=== PATIENT | female | born 1950 | race African-American/Black ===

== ENCOUNTER 2020-09-30 08:10 | Emergency (ER) | payer MEDICARE, OTHER ==
[~2020-09-30] VITALS: Ht 162.6 cm; Wt 63.5 kg
[2020-09-30 08:17] VITALS: BP 167/102
[2020-09-30] MEDS ORDERED: TDAP [DIPH/PERTUSSIS/TET] 0.5 ML VIAL IM ONE ×2 (08:28→08:30)
[2020-09-30] MEDS ORDERED: LIDOCAINE HCL/MPF 1% 30 ML VIAL IJ ONE (08:29)
[2020-09-30] MEDS ORDERED: BACI/NEOM/POLY B OINT PKT 1 UDPKT PACKET TP ONE (08:30)
[2020-09-30] MEDS ORDERED: LIDOCAINE HCL/PF 1% 30 ML VIAL TP ONE (08:30)
--- NOTE | 2020-09-30 09:02 | NUR ---
LAC REPAIR DONE BY DR. TRUONG, APPLIED ANTIBIOTIC OINTMENT AND COVERED WITH DRY DRESSING. Patient discharged to home in stable condition. Written and verbal after care instructions given. Patient verbalizes understanding of instruction.
== END 2020-09-30 09:03 | disposition home or self-care (01) ==
LOC: ER 08:18
DX: S61.512A Laceration without foreign body of left wrist, initial encounter (principal); I10 Essential (primary) hypertension; Z88.1 Allergy status to other antibiotic agents; W20.8XXA Other cause of strike by thrown, projected or falling object, initial encounter; Y93.89 Activity, other specified; Y92.89 Other specified places as the place of occurrence of the external cause; Y99.8 Other external cause status
CPT/HCPCS: 12001; 90471; 90715; 99283; A6403; J3490 ×2